=== PATIENT | male | born 1990 | race Two or more races ===

== ENCOUNTER 2024-01-19 19:25 | Emergency (ER) | payer OTHER ==
[~2024-01-19] VITALS: Ht 177.8 cm; Wt 80.0 kg
[2024-01-19 19:38] VITALS: BP 100/59; PULSE 92; RESP 16; TEMP 97.9
[2024-01-19] MEDS: IBUPROFEN 600 MG TABLET PO ONE (20:39)
[2024-01-19] MEDS: METHOCARBAMOL 500 MG TABLET PO ONE (20:39)
[2024-01-19] MEDS: ACETAMINOPHEN/CODEINE 300-30 MG TABLET PO ONE (20:40)
[2024-01-19] MEDS ORDERED: ACET-2080 PO (22:02)
[2024-01-19] MEDS ORDERED: METH-659 PO (22:02)
[2024-01-19] MEDS ORDERED: IBUP-1554 PO (22:02)
== END 2024-01-19 22:22 | disposition home or self-care (01) ==
LOC: EMS 19:25
DX: S80.02XA Contusion of left knee, initial encounter (principal); S60.222A Contusion of left hand, initial encounter; S50.812A Abrasion of left forearm, initial encounter; Z88.0 Allergy status to penicillin; X58.XXXA Exposure to other specified factors, initial encounter; Y93.89 Activity, other specified; Y92.89 Other specified places as the place of occurrence of the external cause; Y99.8 Other external cause status
CPT/HCPCS: 99284; 73090-TC; 73130-TC; 73562-TC; Z7502; Z7610

== ENCOUNTER 2025-06-11 15:35 | Emergency (ER) | payer OTHER ==
[~2025-06-11] VITALS: Ht 180.3 cm; Wt 81.0 kg
[2025-06-11 15:45] VITALS: BP 104/64; PULSE 77; RESP 16; TEMP 98.3; O2SAT 98
== END 2025-06-11 17:34 ==
LOC: EMS 15:35
DX: F19.10 Other psychoactive substance abuse, uncomplicated (principal); Z02.89 Encounter for other administrative examinations; Z88.0 Allergy status to penicillin
CPT/HCPCS: 99283; Z7502